=== PATIENT | female | born 1970 | race Two or more races ===

== ENCOUNTER → 2017-08-21 | Outpatient (CLI) | payer MEDICAID, OTHER ==
[~2017-08-21] VITALS: Ht 154.9 cm; Wt 115.2 kg
== END | disposition home or self-care (01) ==
LOC: Rad HDHVI 09:21
PROVIDERS: ATTEND Internal Medicine
DX: I10 Essential (primary) hypertension (principal); G47.33 Obstructive sleep apnea (adult) (pediatric); R63.8 Other symptoms and signs concerning food and fluid intake
CPT/HCPCS: 78452; 93017; 96374; A9500

== ENCOUNTER → 2017-08-22 | Outpatient (CLI) | payer MEDICAID, OTHER | END | disposition home or self-care (01) | LOC: Rad HDHVI 09:00 | PROVIDERS: ATTEND Internal Medicine | DX: I10 Essential (primary) hypertension (principal); G47.33 Obstructive sleep apnea (adult) (pediatric); I07.1 Rheumatic tricuspid insufficiency | CPT/HCPCS: 93306 ==

== ENCOUNTER 2018-08-08 07:28 | Day surgery (SDC) | payer MEDICAID ==
[2018-08-02 15:12] LABS: Urine Bacteria NONE SEEN /hpf (None Seen); Urine Blood Negative /uL (Negative); Urine Specific Gravity 1.021 (1.001-1.035); Urine WBC 4 /hpf (0 - 5)
[2018-08-02 15:17] LABS: Eosinophils # (auto) 0.2 uL; Hemoglobin 11.1 g/dL (12.2-16.2); Lymphocytes # (auto) 3.4 uL
[2018-08-02 15:20] LABS: Basophils # (auto) 0 uL; Basophils % (auto) 0.5 % (0.0-2.0); Eosinophils % (auto) 2.2 % (0.0-7.0); Hematocrit 34.8 % (36.0-46.0); Lymphocytes % (auto) 38.5 % (10.0-50.0); Mean Corpuscular Hemoglobin 24.1 pg (28.0-32.0); Mean Corpuscular Hgb Conc. 31.9 g/dL (32.0-36.0); Mean Corpuscular Volume 75.7 fL (80.0-100.0); Monocytes # (auto) 0.9 uL; Monocytes % (auto) 9.6 % (0.0-12.0); Neutrophils # (auto) 4.4 uL; Neutrophils % (auto) 49.2 % (37.0-80.0); Platelet Count (auto) 436 10^3/uL (140-450); Red Cell Distribution Width 14.9 % (11.8-14.3); White Blood Cell 8.9 10^3/uL (4.4-10.8)
[2018-08-02 15:22] LABS: INR 0.9 (0.9-1.15); Partial Thromboplastin Time 26.4 sec (23.64-32.05)
[2018-08-02 15:23] LABS: Albumin 3.7 g/dL (3.4-5.0); Potassium 4.3 mmol/L (3.5-5.1)
[2018-08-02 15:25] LABS: BUN/Creatinine Ratio 18.5; Bilirubin, Total 0.1 mg/dL (0.2-1.0); Total Protein 7.9 g/dL (6.4-8.2)
[~2018-08-08] VITALS: Ht 154.9 cm; Wt 104.3 kg
[~2018-08-08 07:28] MED LIST: AMLO10TA12 PO; HYDRX10T PO; NAP500T PO
[2018-08-08] MEDS ORDERED: ceFAZolin 1GM/50ML 50 ML IV ONE (08:31)
[2018-08-08] MEDS ORDERED: ROPIVACAINE 0.5% (5MG/ML) 20ML AMPULE IJ ONE ×2 (08:44→10:50)
[2018-08-08] MEDS ORDERED: KETOROLAC TROMETH 30 MG/ML 1ML VIAL IV ONE (08:45)
[2018-08-08] MEDS ORDERED: METOCLOPRAMIDE HCL 5MG/ml INJ 2ml VIAL IV ONE (08:45)
[2018-08-08] MEDS ORDERED: fentaNYL CITRATE 100 MCG/2 ML VL ONE (09:03)
[2018-08-08] MEDS ORDERED: SODIUM CHLORIDE LOCK 10 ML ONE (09:04)
[2018-08-08] MEDS ORDERED: PROPOFOL 10 MG/ML 20 ML IV ONE ×3 (09:04→10:25)
[2018-08-08] MEDS ORDERED: ONDANSETRON HCL 4 MG/2 ML VIAL ONE (09:04)
[2018-08-08] MEDS ORDERED: MIDAZOLAM HCL 1MG/1ML-2 ML VIAL ONE (09:04)
[2018-08-08] MEDS: HYDROmorphone HCL 2 MG/ML VL IV PRN ×3 (11:04→11:24)
[2018-08-08 11:31] VITALS: BP 134/90
== END 2018-08-08 11:46 | disposition home or self-care (01) ==
LOC: SUR 07:28
PROVIDERS: ATTEND Podiatrist Foot & Ankle Surgery
DX: M21.621 Bunionette of right foot (principal); M21.622 Bunionette of left foot; E11.9 Type 2 diabetes mellitus without complications; I10 Essential (primary) hypertension; E66.9 Obesity, unspecified; Z87.59 Personal history of other complications of pregnancy, childbirth and the puerperium; Z98.890 Other specified postprocedural states; Z79.899 Other long term (current) drug therapy; Z68.41 Body mass index [BMI] 40.0-44.9, adult
CPT/HCPCS: 28110; 36415; 73620; 80053; 81001; 82962; 84702; 85025; 85610; 85730; 93005; C1713; C1769; J0690; J1170; J2250; J2405; J2704; J2795; J3010

== ENCOUNTER 2018-12-12 08:53 | Day surgery (SDC) | payer MEDICAID ==
[2018-12-11 12:48] LABS: Basophils # (auto) 0.1 uL; Eosinophils # (auto) 0.2 uL; Hemoglobin 12.9 g/dL (12.2-16.2); Lymphocytes # (auto) 2.7 uL
[2018-12-11 12:50] LABS: Basophils % (auto) 0.7 % (0.0-2.0); Eosinophils % (auto) 2.3 % (0.0-7.0); Hematocrit 39.8 % (36.0-46.0); Lymphocytes % (auto) 33.6 % (10.0-50.0); Mean Corpuscular Hemoglobin 26.6 pg (28.0-32.0); Mean Corpuscular Hgb Conc. 32.4 g/dL (32.0-36.0); Mean Corpuscular Volume 82.3 fL (80.0-100.0); Monocytes % (auto) 12.7 % (0.0-12.0); Neutrophils % (auto) 50.7 % (37.0-80.0); Platelet Count (auto) 394 10^3/uL (140-450); Red Blood Cells 4.84 10^6/uL (4.0-5.20); Red Cell Distribution Width 17.9 % (11.8-14.3)
[2018-12-11 12:59] LABS: Urine Bacteria FEW /hpf (None Seen); Urine Blood Negative /uL (Negative); Urine Mucus FEW (None Seen); Urine Specific Gravity 1.013 (1.001-1.035); Urine WBC 21 /hpf (0 - 5)
[2018-12-11 13:18] LABS: Albumin 3.6 g/dL (3.4-5.0); Potassium 4.3 mmol/L (3.5-5.1)
[2018-12-11 13:19] LABS: INR < 0.93 (0.9-1.15); Partial Thromboplastin Time 28.8 sec (23.64-32.05)
[2018-12-11 13:21] LABS: BUN/Creatinine Ratio 15.8; Bilirubin, Total 0.2 mg/dL (0.2-1.0); Total Protein 7.9 g/dL (6.4-8.2)
[~2018-12-12] VITALS: Ht 154.9 cm; Wt 104.3 kg
[~2018-12-12 08:53] MED LIST changes: -AMLO10TA12 PO; +AMLO10TA13 PO
[2018-12-12] MEDS ORDERED: ceFAZolin 1GM/50ML 50 ML IV ONE (09:00)
[2018-12-12] MEDS ORDERED: ROPIVACAINE 0.5% (5MG/ML) 20ML AMPULE IJ ONE (10:45)
[2018-12-12] MEDS ORDERED: SUCCINYLCHOLINE CHLORIDE 20 MG/ML 10ML VIAL IV ONE (10:51)
[2018-12-12] MEDS ORDERED: ROCURONIUM 10MG/ML 10ML VIAL IV ONE (10:51)
[2018-12-12] MEDS ORDERED: GLYCOPYRROLATE 0.2 MG/ML 1ML VIAL IV ONE (10:51)
[2018-12-12] MEDS ORDERED: NEOSTIGMINE 1 MG/ML INJ (10mg/10ML VIAL) IV ONE (10:51)
[2018-12-12] MEDS ORDERED: fentaNYL CITRATE 100 MCG/2 ML VL ONE (10:53)
[2018-12-12] MEDS ORDERED: MIDAZOLAM HCL 1MG/1ML-2 ML VIAL ONE (10:53)
[2018-12-12] MEDS ORDERED: PROPOFOL 10 MG/ML 20 ML IV ONE (10:58)
[2018-12-12] MEDS ORDERED: methylPREDNISolone ACETATE 80 MG/ML VL ONE (11:20)
[2018-12-12] MEDS ORDERED: fentaNYL CITRATE 100 MCG/2 ML VL IV PRN (11:45)
[2018-12-12] MEDS ORDERED: ePHEDrine SULFATE 50 MG/ML AMP IV PRN (11:45)
[2018-12-12] MEDS ORDERED: ONDANSETRON HCL 4 MG/2 ML VIAL IV PRN (11:45)
[2018-12-12] MEDS ORDERED: hydrALAZINE HCL 20 MG/ML VL IV PRN (11:45)
[2018-12-12 12:26] VITALS: BP 114/63
== END 2018-12-12 12:45 | disposition home or self-care (01) ==
LOC: SUR 08:53
PROVIDERS: ATTEND Podiatrist Foot & Ankle Surgery
DX: M72.2 Plantar fascial fibromatosis (principal); M21.962 Unspecified acquired deformity of left lower leg; I10 Essential (primary) hypertension; E66.9 Obesity, unspecified; Z87.59 Personal history of other complications of pregnancy, childbirth and the puerperium; Z98.890 Other specified postprocedural states; Z79.899 Other long term (current) drug therapy; Z68.41 Body mass index [BMI] 40.0-44.9, adult
CPT/HCPCS: 29893; 29999; 36415; 80053; 81001; 84702; 85025; 85610; 85730; J0330; J0690; J1040; J2250; J2704; J2795; J3010